=== PATIENT | female | born 1985 | race Caucasian/White ===

== ENCOUNTER 2016-09-07 20:21 | Inpatient (IN) | payer OTHER ==
[~2016-09-07] VITALS: Ht 167.6 cm; Wt 64.0 kg
[2016-09-07 22:13] LABS: HEMATOCRIT 35.7 % (36.0-46.0); MCH 27.4 PG (29.0-34.0); MCHC 31.7 G/DL (30.0-36.0); MCV 86.4 FL (83-99); MEAN PLAT.VOLUME 11.8 uM^3 (9.5-12.4); PLATELET COUNT 190 K/uL (156-360); RBC DIS.WIDTH-CV 13.2 % (11.8-14.6); RBC DIS.WIDTH-SD 41.6 % (39-53); RED BLOOD COUNT 4.13 M/uL (3.80-5.20)
[2016-09-07 22:19] LABS: AMPHETAMINE NEGATIVE (500 ng/mL); BARBITURATES NEGATIVE (200 ng/mL); BENZODIAZEPINES NEGATIVE (150 ng/mL); COCAINE NEGATIVE (150 ng/mL); INTERNAL CONTROLS VALID? YES; METHADONE NEGATIVE (200 ng/mL); METHAMPHETAMINE NEGATIVE (500 ng/mL); OPIATES (MORPHINE) NEGATIVE (100 ng/mL); OXYCODONE NEGATIVE (100 ng/mL); PHENCYCLIDINE NEGATIVE (25 ng/mL); PROPOXYPHENE NEGATIVE (300 ng/mL); THC CANNABINOIDS NEGATIVE (50 ng/mL); TRICYCLIC ANTIDEPRESSANTS NEGATIVE (300 ng/mL)
[2016-09-07 22:24] LABS: CHLORIDE 111 mEq/L (99-109); POTASSIUM 3.8 mEq/L (3.7-5.4); SODIUM 143 mEq/L (136-147)
[2016-09-07 22:26] LABS: GLUCOSE 103 mg/dL (70-99)
[2016-09-07 22:27] LABS: ANION GAP 11 MEQ/L (2-14)
[2016-09-07 22:29] LABS: SERUM ETHYL ALCOHOL 183 mg/dL
[2016-09-07 22:30] LABS: GFR ESTIMATE (CALCULATED) > 59 mL/min/
[2016-09-07 22:31] LABS: UREA NITROGEN (BUN) 12 mg/dL (9-23)
[2016-09-07 22:39] LABS: QUANTITATIVE HCG < 4.0 MIU/ML
[2016-09-08 14:31] VITALS: BP 131/73
[2016-09-08 15:57] VITALS: BP 131/73
[2016-09-09 08:01] VITALS: BP 110/54
[2016-09-09 15:55] VITALS: BP 118/67
[2016-09-10 08:15] VITALS: BP 140/92
[2016-09-10 15:46] VITALS: BP 132/82
[2016-09-11 07:56] VITALS: BP 132/62
[2016-09-11 15:32] VITALS: BP 103/56
[2016-09-12 08:01] VITALS: BP 100/51
[2016-09-12] MEDS ORDERED: DEPAKOTE ER250 MG PO (11:50)
[2016-09-12] MEDS ORDERED: AMOXICILLIN500 MG PO (11:50)
[2016-09-12] MEDS ORDERED: PRAZOSIN HCL1 MG PO (11:50)
[2016-09-12] MEDS ORDERED: BUPROPION HCL100 M1 PO (11:52)
[2016-09-12] MEDS ORDERED: ALPRAZOLAM0.5 MG PO (11:52)
[2016-09-12] MEDS ORDERED: ARIPIPRAZOLE10 MG PO (11:52)
== END 2016-09-12 13:37 | disposition home or self-care (01) | DRG 885 ==
LOC: EME 20:21 → 1WEST 09-08 13:19 → EDOF 09-08 13:19 → 1WEST 09-08 13:19
PROVIDERS: Emergency Medicine
DX: F33.9 Major depressive disorder, recurrent, unspecified (principal); F10.99 Alcohol use, unspecified with unspecified alcohol-induced disorder; F60.3 Borderline personality disorder; F41.0 Panic disorder [episodic paroxysmal anxiety]; F64.0 Transsexualism; K04.7 Periapical abscess without sinus; F25.0 Schizoaffective disorder, bipolar type; F98.8 Other specified behavioral and emotional disorders with onset usually occurring in childhood and adolescence
CPT/HCPCS: 80048; 84702; 85027; 90837; 97150 GO; 97165 GO; 99281; 99285; G0480

== ENCOUNTER 2016-10-19 19:49 | Emergency (ER) | payer OTHER ==
[~2016-10-19] VITALS: Ht 167.6 cm; Wt 66.1 kg
[~2016-10-19 19:49] MED LIST: ALPRAZOLAM0.5 MG PO; AMOXICILLIN500 MG PO; ARIPIPRAZOLE10 MG PO; BUPROPION HCL100 M1 PO; DEPAKOTE ER250 MG PO; PRAZOSIN HCL1 MG PO
[2016-10-19] MEDS ORDERED: NORCO 5/3251 TABLET PO (21:51)
[2016-10-19] MEDS ORDERED: MOTRIN600 MG PO (21:51)
[2016-10-19] MEDS ORDERED: AMOXICILLIN875 MG PO (21:51)
[2016-10-19 22:13] VITALS: BP 128/84
== END 2016-10-19 22:14 | disposition home or self-care (01) ==
LOC: EME 19:49
DX: K08.89 Other specified disorders of teeth and supporting structures (principal); F17.200 Nicotine dependence, unspecified, uncomplicated
CPT/HCPCS: 99281; 99283

== ENCOUNTER 2016-10-31 15:20 | Emergency (ER) | payer OTHER ==
[~2016-10-31] VITALS: Ht 167.6 cm; Wt 69.4 kg
[~2016-10-31 15:20] MED LIST changes: +AMOXICILLIN875 MG PO; +MOTRIN600 MG PO; +NORCO 5/3251 TABLET PO
[2016-10-31 15:45] LABS: HEMATOCRIT 35.4 % (36.0-46.0); MCH 26.9 PG (29.0-34.0); MCHC 32.2 G/DL (30.0-36.0); MCV 83.5 FL (83-99); RBC DIS.WIDTH-CV 13.4 % (11.8-14.6); RBC DIS.WIDTH-SD 40.9 % (39-53); RED BLOOD COUNT 4.24 M/uL (3.80-5.20); WHITE BLOOD COUNT 11.5 K/uL (4.1-10.2)
[2016-10-31 15:54] LABS: CHLORIDE 107 mEq/L (99-109); SODIUM 137 mEq/L (136-147)
[2016-10-31 15:55] LABS: GLUCOSE 128 mg/dL (70-99)
[2016-10-31 15:57] LABS: ANION GAP 9 MEQ/L (2-14)
[2016-10-31 15:59] LABS: GFR ESTIMATE (CALCULATED) > 59 mL/min/
[2016-10-31 16:00] LABS: UREA NITROGEN (BUN) 10 mg/dL (9-23)
[2016-10-31 16:05] LABS: TROP-I INTERPRETATION NEGATIVE; TROPONIN-I < 0.01 ng/mL (0.0-0.30)
[2016-10-31 16:08] LABS: QUANTITATIVE HCG < 4.0 MIU/ML
[2016-10-31 16:42] LABS: ADD MIUA? YES; BILIRUBIN NEGATIVE; BLOOD NEGATIVE; COLOR STRAW ((YELLOW)); GLUCOSE (STRIP) NEGATIVE; KETONES NEGATIVE; LEUKOCYTES TRACE; NITRITE NEGATIVE; PROTEIN (STRIP) NEGATIVE; SPECIFIC GRAVITY 1.015 (1.000-1.030); UROBILINOGEN 0.2 MG/DL (0.2-1.0)
[2016-10-31 16:45] LABS: BACTERIA NONE SEEN /HPF; EPITHELIAL CELLS RARE /HPF; MUCUS TRACE /LPF; RED BLOOD CELLS 0-5 /HPF (0-5); UCUL ADDED? NO; WHITE BLOOD CELLS 0-5 /HPF (0-5)
[2016-10-31 16:51] LABS: ADD MEDTOX COMMENT Y; AMPHETAMINE NEGATIVE (500 ng/mL); BARBITURATES PRESUMPTIVE POSITIVE (200 ng/mL); BENZODIAZEPINES PRESUMPTIVE POSITIVE (150 ng/mL); COCAINE NEGATIVE (150 ng/mL); INTERNAL CONTROLS VALID? YES; METHADONE NEGATIVE (200 ng/mL); METHAMPHETAMINE NEGATIVE (500 ng/mL); OPIATES (MORPHINE) NEGATIVE (100 ng/mL); OXYCODONE NEGATIVE (100 ng/mL); PHENCYCLIDINE NEGATIVE (25 ng/mL); PROPOXYPHENE NEGATIVE (300 ng/mL); THC CANNABINOIDS NEGATIVE (50 ng/mL); TRICYCLIC ANTIDEPRESSANTS NEGATIVE (300 ng/mL)
[2016-10-31 17:41] LABS: BENZODIAZEPINES, URINE SCREEN POSITIVE (200 ng/mL)
[2016-10-31 18:06] LABS: HEMATOLOGY COMMENT 1 SN; MEAN PLAT.VOLUME 12.1 uM^3 (9.5-12.4); PLAT.SUFFICIENCY ADEQUATE; PLATELET COUNT 167 K/uL (156-360)
[2016-10-31 20:00] VITALS: BP 129/90
== END 2016-10-31 20:09 | disposition home or self-care (01) ==
LOC: EME 15:20
PROVIDERS: Emergency Medicine
DX: T65.91XA Toxic effect of unspecified substance, accidental (unintentional), initial encounter (principal); R41.82 Altered mental status, unspecified
CPT/HCPCS: 80048; 80164; 81003; 84484; 84702; 84999; 85027; 99281; 99285; J2310; J2550

== ENCOUNTER 2016-11-03 22:56 | Emergency (ER) | payer OTHER ==
[~2016-11-03] VITALS: Ht 167.6 cm; Wt 66.5 kg
[2016-11-04] MEDS ORDERED: PEN-VEE K,VEET500 MG PO (00:08)
[2016-11-04 00:42] VITALS: BP 130/89
== END 2016-11-04 00:48 | disposition home or self-care (01) ==
LOC: EXP 22:56 → EME 22:56 → EXP 11-04 00:48
DX: K08.89 Other specified disorders of teeth and supporting structures (principal); K03.81 Cracked tooth; R51 Headache; Z87.891 Personal history of nicotine dependence
CPT/HCPCS: 99281; 99283; J8540

== ENCOUNTER 2016-12-17 23:05 | Emergency (ER) | payer OTHER ==
[~2016-12-17] VITALS: Ht 165.1 cm; Wt 63.1 kg
[~2016-12-17 23:05] MED LIST changes: +PEN-VEE K,VEET500 MG PO
[2016-12-18 00:12] LABS: ADD MIUA? NO; BILIRUBIN NEGATIVE; BLOOD NEGATIVE; COLOR YELLOW ((YELLOW)); GLUCOSE (STRIP) NEGATIVE; KETONES NEGATIVE; LEUKOCYTES NEGATIVE; NITRITE NEGATIVE; PROTEIN (STRIP) NEGATIVE; SPECIFIC GRAVITY 1.014 (1.000-1.030); UROBILINOGEN 0.2 MG/DL (0.2-1.0)
[2016-12-18 00:27] LABS: EOSINOPHIL (%) 0.6 % (0-5); EOSINOPHIL COUNT 0.1 K/uL (0-0.3); HEMATOCRIT 40.8 % (36.0-46.0); IMMATURE GRANULOCYTE (%) 0.6 % (0.0-0.7); IMMATURE GRANULOCYTE COUNT 0.1 K/uL; INSTRUMENT ABS NEUTROPHIL CT 11.6 K/uL; MCH 26.9 PG (29.0-34.0); MCHC 32.4 G/DL (30.0-36.0); MCV 83.3 FL (83-99); MEAN PLAT.VOLUME 11.8 uM^3 (9.5-12.4); MONOCYTE (%) 8.3 % (3-12); MONOCYTE COUNT 1.3 K/uL (0-0.8); NEUTROPHIL (%) 71.8 % (45-76); NEUTROPHIL COUNT 11.6 K/uL (1.8-6.4); PLATELET COUNT 230 K/uL (156-360); RBC DIS.WIDTH-CV 14.3 % (11.8-14.6); RBC DIS.WIDTH-SD 43.4 % (39-53); WHITE BLOOD COUNT 16.2 K/uL (4.1-10.2)
[2016-12-18 00:28] LABS: ADD MEDTOX COMMENT Y; AMPHETAMINE NEGATIVE (500 ng/mL); BARBITURATES NEGATIVE (200 ng/mL); BENZODIAZEPINES PRESUMPTIVE POSITIVE (150 ng/mL); COCAINE NEGATIVE (150 ng/mL); INTERNAL CONTROLS VALID? YES; METHADONE NEGATIVE (200 ng/mL); METHAMPHETAMINE NEGATIVE (500 ng/mL); OPIATES (MORPHINE) NEGATIVE (100 ng/mL); OXYCODONE NEGATIVE (100 ng/mL); PHENCYCLIDINE NEGATIVE (25 ng/mL); PROPOXYPHENE NEGATIVE (300 ng/mL); THC CANNABINOIDS NEGATIVE (50 ng/mL); TRICYCLIC ANTIDEPRESSANTS NEGATIVE (300 ng/mL)
[2016-12-18 00:39] LABS: D-DIMER ELISA < 150.00 ng/mLDDU (<230)
[2016-12-18 00:46] LABS: CHLORIDE 101 mEq/L (99-109); POTASSIUM 3.9 mEq/L (3.7-5.4); SODIUM 134 mEq/L (136-147)
[2016-12-18 00:49] LABS: GLUCOSE 97 mg/dL (70-99)
[2016-12-18 00:50] LABS: ANION GAP 10 MEQ/L (2-14)
[2016-12-18 00:51] LABS: TOTAL BILIRUBIN 0.3 mg/dL (0.0-1.0)
[2016-12-18 00:52] LABS: ALKALINE PHOSPHATASE 78 IU/L (3-129); SERUM ETHYL ALCOHOL < 10 mg/dL
[2016-12-18 00:53] LABS: GFR ESTIMATE (CALCULATED) > 59 mL/min/
[2016-12-18 00:54] LABS: DIRECT BILIRUBIN 0.2 mg/dL (0.0-0.3); UREA NITROGEN (BUN) 10 mg/dL (9-23)
[2016-12-18 00:56] LABS: LIPASE 24 U/L (1.0-51.0)
[2016-12-18 01:05] LABS: QUANTITATIVE HCG < 4.0 MIU/ML
[2016-12-18 02:26] LABS: BENZODIAZEPINES QUANT VALUE 0 NG/ML; BENZODIAZEPINES, URINE SCREEN Negative (200 ng/mL)
[2016-12-18] MEDS ORDERED: IMITREX50 MG PO (02:36)
[2016-12-18] MEDS ORDERED: MOTRIN800 MG PO (02:36)
[2016-12-18] MEDS ORDERED: ZOFRAN ODT4 MG PO (02:36)
[2016-12-18 03:00] VITALS: BP 117/74
== END 2016-12-18 03:00 | disposition home or self-care (01) ==
LOC: EME 23:05
PROVIDERS: Physician Assistant
DX: R07.1 Chest pain on breathing (principal); F32.9 Major depressive disorder, single episode, unspecified; F41.9 Anxiety disorder, unspecified; F17.200 Nicotine dependence, unspecified, uncomplicated; R51 Headache; R19.7 Diarrhea, unspecified; R11.2 Nausea with vomiting, unspecified; M54.2 Cervicalgia; R10.12 Left upper quadrant pain
CPT/HCPCS: 71020; 80053; 81003; 82248; 83690; 84702; 84999; 85025; 85379; 99281; 99285; G0480; J1885; J2405; J3030; J7030

== ENCOUNTER 2017-04-09 10:57 | Emergency (ER) | payer OTHER ==
[~2017-04-09] VITALS: Ht 165.1 cm; Wt 64.5 kg
[~2017-04-09 10:57] MED LIST changes: +IMITREX50 MG PO; +MOTRIN800 MG PO; +ZOFRAN ODT4 MG PO
[2017-04-09] MEDS ORDERED: CLINDAMYCIN HC150 MG PO (13:17)
[2017-04-09 13:30] VITALS: BP 113/73
== END 2017-04-09 13:33 | disposition home or self-care (01) ==
LOC: EME 10:57
DX: K04.7 Periapical abscess without sinus (principal); Z72.0 Tobacco use
CPT/HCPCS: 99281; 99283

== ENCOUNTER 2017-05-14 07:47 | Emergency (ER) | payer OTHER ==
[~2017-05-14] VITALS: Ht 165.1 cm; Wt 56.4 kg
[~2017-05-14 07:47] MED LIST changes: +CLINDAMYCIN HC150 MG PO
[2017-05-14 09:43] LABS: ADD MEDTOX COMMENT Y; AMPHETAMINE NEGATIVE (500 ng/mL); BARBITURATES NEGATIVE (200 ng/mL); BENZODIAZEPINES NEGATIVE (150 ng/mL); COCAINE NEGATIVE (150 ng/mL); INTERNAL CONTROLS VALID? YES; METHADONE NEGATIVE (200 ng/mL); METHAMPHETAMINE NEGATIVE (500 ng/mL); OPIATES (MORPHINE) NEGATIVE (100 ng/mL); OXYCODONE NEGATIVE (100 ng/mL); PHENCYCLIDINE NEGATIVE (25 ng/mL); PROPOXYPHENE NEGATIVE (300 ng/mL); THC CANNABINOIDS PRESUMPTIVE POSITIVE (50 ng/mL); TRICYCLIC ANTIDEPRESSANTS NEGATIVE (300 ng/mL)
[2017-05-14 10:16] VITALS: BP 119/74
== END 2017-05-14 10:18 | disposition home or self-care (01) ==
LOC: EME 07:47
PROVIDERS: Emergency Medicine Emergency Medical Services
DX: F41.9 Anxiety disorder, unspecified (principal); F32.9 Major depressive disorder, single episode, unspecified; F12.10 Cannabis abuse, uncomplicated; R42 Dizziness and giddiness; Z72.0 Tobacco use
CPT/HCPCS: 84999; 99281; 99284

== ENCOUNTER 2017-05-20 11:04 | Emergency (ER) | payer OTHER ==
[~2017-05-20] VITALS: Ht 157.5 cm; Wt 56.8 kg
[2017-05-20 11:58] LABS: EOSINOPHIL (%) 0.5 % (0-5); EOSINOPHIL COUNT 0.1 K/uL (0-0.3); HEMATOCRIT 35.5 % (36.0-46.0); IMMATURE GRANULOCYTE (%) 0.4 % (0.0-0.7); IMMATURE GRANULOCYTE COUNT 0.1 K/uL; INSTRUMENT ABS NEUTROPHIL CT 10.8 K/uL; LYMPHOCYTE COUNT 1.7 K/uL (1.0-2.8); MCH 27.8 PG (29.0-34.0); MCV 84.3 FL (83-99); MEAN PLAT.VOLUME 11.4 uM^3 (9.5-12.4); MONOCYTE (%) 6.3 % (3-12); MONOCYTE COUNT 0.9 K/uL (0-0.8); NEUTROPHIL (%) 79.9 % (45-76); NEUTROPHIL COUNT 10.8 K/uL (1.8-6.4); PLATELET COUNT 239 K/uL (156-360); RBC DIS.WIDTH-CV 14.2 % (11.8-14.6); RBC DIS.WIDTH-SD 43.8 % (39-53); RED BLOOD COUNT 4.21 M/uL (3.80-5.20); WHITE BLOOD COUNT 13.5 K/uL (4.1-10.2)
[2017-05-20 12:09] LABS: CHLORIDE 106 mEq/L (99-109); POTASSIUM 3.5 mEq/L (3.7-5.4); SODIUM 141 mEq/L (136-147)
[2017-05-20 12:12] LABS: GLUCOSE 103 mg/dL (70-99)
[2017-05-20 12:13] LABS: ANION GAP 12 MEQ/L (2-14); TOTAL BILIRUBIN 0.8 mg/dL (0.0-1.0)
[2017-05-20 12:15] LABS: GFR ESTIMATE (CALCULATED) > 59 mL/min/; SERUM ETHYL ALCOHOL < 10 mg/dL
[2017-05-20 12:16] LABS: ALKALINE PHOSPHATASE 64 IU/L (3-129)
[2017-05-20 12:17] LABS: DIRECT BILIRUBIN 0.3 mg/dL (0.0-0.3); UREA NITROGEN (BUN) 15 mg/dL (9-23)
[2017-05-20 12:19] LABS: SALICYLATE < 5.0 MG/DL (15-30)
[2017-05-20 12:25] LABS: QUANTITATIVE HCG < 4.0 MIU/ML
[2017-05-20 12:40] LABS: ADD MIUA? YES; BILIRUBIN NEGATIVE; BLOOD NEGATIVE; COLOR YELLOW ((YELLOW)); GLUCOSE (STRIP) NEGATIVE; KETONES NEGATIVE; LEUKOCYTES NEGATIVE; NITRITE NEGATIVE; PROTEIN (STRIP) 30; SPECIFIC GRAVITY 1.016 (1.000-1.030); UROBILINOGEN 0.2 MG/DL (0.2-1.0)
[2017-05-20 12:51] LABS: AMPHETAMINE NEGATIVE (500 ng/mL); BARBITURATES NEGATIVE (200 ng/mL); BENZODIAZEPINES NEGATIVE (150 ng/mL); COCAINE NEGATIVE (150 ng/mL); INTERNAL CONTROLS VALID? YES; METHADONE NEGATIVE (200 ng/mL); METHAMPHETAMINE NEGATIVE (500 ng/mL); OPIATES (MORPHINE) NEGATIVE (100 ng/mL); OXYCODONE NEGATIVE (100 ng/mL); PHENCYCLIDINE NEGATIVE (25 ng/mL); PROPOXYPHENE NEGATIVE (300 ng/mL); THC CANNABINOIDS NEGATIVE (50 ng/mL); TRICYCLIC ANTIDEPRESSANTS NEGATIVE (300 ng/mL)
[2017-05-20 12:58] LABS: AMORPHOUS URATES CRYSTALS 2+; BACTERIA 2+ /HPF; CASTS PRESENT /LPF; CRYSTALS PRESENT; EPITHELIAL CELLS 1+ /HPF; HYALINE CASTS RARE /LPF; MUCUS 2+ /LPF; RED BLOOD CELLS 0-5 /HPF (0-5)
[2017-05-20 15:15] VITALS: BP 132/90
== END 2017-05-20 22:17 | disposition home or self-care (01) ==
LOC: EME 11:04
PROVIDERS: Emergency Medicine
DX: F33.1 Major depressive disorder, recurrent, moderate (principal); F41.0 Panic disorder [episodic paroxysmal anxiety]; F60.3 Borderline personality disorder; R45.851 Suicidal ideations; Z72.0 Tobacco use
CPT/HCPCS: 70450; 80048; 80076; 81003; 84702; 85025; 90837; 99281; 99285; G0480; J1630; J2250

== ENCOUNTER 2017-05-20 16:24 | Emergency (ER) | payer OTHER ==
[~2017-05-20] VITALS: Ht 165.1 cm; Wt 56.3 kg
[2017-05-20 22:00] VITALS: BP 137/105
== END 2017-05-20 17:13 | disposition home or self-care (01) ==
LOC: EME 16:24
DX: F32.9 Major depressive disorder, single episode, unspecified (principal); F12.10 Cannabis abuse, uncomplicated; Z72.0 Tobacco use
CPT/HCPCS: 99281; 99283

== ENCOUNTER 2017-05-23 04:44 | Emergency (ER) | payer OTHER ==
[~2017-05-23] VITALS: Ht 165.1 cm; Wt 57.8 kg
[2017-05-23 06:23] VITALS: BP 121/89
== END 2017-05-23 08:43 | disposition home or self-care (01) ==
LOC: EME 04:44
DX: R44.0 Auditory hallucinations (principal); F22 Delusional disorders; F25.0 Schizoaffective disorder, bipolar type; F60.3 Borderline personality disorder; F32.9 Major depressive disorder, single episode, unspecified; F41.9 Anxiety disorder, unspecified; Z72.0 Tobacco use
CPT/HCPCS: 80053; 80164; 84702; 85025; 90839; 99281; 99284; G0480